=== PATIENT | male | born 1985 | race Caucasian/White ===

== ENCOUNTER 2018-05-19 12:25 | Emergency (ER) | payer OTHER ==
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
[2018-05-19 13:31] VITALS: RESP 18; TEMP 98.4; O2SAT 99
[2018-05-19 14:23] VITALS: BP 148/70; PULSE 86
--- NOTE | 2018-05-19 14:50 | RAD ---
Date of service: 05/19/2018 PROCEDURE: Cervical Spine Radiographs. HISTORY: Pain. COMPARISON: None available. FINDINGS: BONES: There is normal alignment of the cervical vertebral bodies. There is normal cervical lordosis. Vertebral height is normal. Bone mineralization is normal. There is no acute fracture or traumatic anterior listhesis. The craniocervical junction is normal. The atlantoaxial joint normal. DISC SPACES: Normal. SOFT TISSUES: Normal. No prevertebral soft tissue swelling. OTHER FINDINGS: None. IMPRESSION: No acute fracture or traumatic anterior listhesis
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
== END 2018-05-19 15:05 | disposition home or self-care (01) ==
LOC: ED 12:25
DX: M54.9 Dorsalgia, unspecified (principal); M25.561 Pain in right knee; M25.562 Pain in left knee; V49.49XA Driver injured in collision with other motor vehicles in traffic accident, initial encounter; Y92.410 Unspecified street and highway as the place of occurrence of the external cause

== ENCOUNTER 2018-08-28 11:26 | Emergency (ER) | payer OTHER ==
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
[2018-08-28 12:59] VITALS: RESP 19; TEMP 98
[2018-08-28 13:32] VITALS: BP 128/57; PULSE 85; O2SAT 99
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
== END 2018-08-28 13:30 | disposition left against medical advice (07) ==
LOC: ED 11:26
DX: S93.402A Sprain of unspecified ligament of left ankle, initial encounter (principal); X50.1XXA Overexertion from prolonged static or awkward postures, initial encounter; Y93.01 Activity, walking, marching and hiking; Y92.480 Sidewalk as the place of occurrence of the external cause